=== PATIENT | male | born 1950 | race Caucasian/White ===

== ENCOUNTER 2017-11-26 06:39 | Inpatient (IN) | payer OTHER ==
[2017-11-26] VITALS (9 sets, daily range): BP systolic 135–164; BP diastolic 80–99; PULSE 62–77; TEMP 36.6–36.9; O2SAT 94–98; Ht 172.7 cm; Wt 92.1 kg
[~2017-11-26] VITALS: Ht 172.7 cm; Wt 92.1 kg
[2017-11-26] MEDS ORDERED: ASPIRIN 81 MG CHEW PO STA (06:57)
[2017-11-26] MEDS ORDERED: NITROGLYCERIN 0.4 MG SL PER TAB CHARGE SL STA (06:57)
--- NOTE | 2017-11-26 07:13 | EMERGENCY ROOM VISIT NOTE ---
History Report prepared by Bassam: Peyton Brown Under the Supervision of: Dr. Galindo Mcpherson M.D. First contact with patient: 06:48 Chief Complaint: CHEST PAIN Stated Complaint: CHEST PAIN,TIGHTNESS History of Present Illness The patient is a 67 year old male who presents to the Emergency Room with complaints of worsening left-sided chest pain beginning last night. The patient rates his pain at a 3/10. He describes the pain as a tightness and states that it has worsened over the last hour and a half. The patient reports feeling fine yesterday. The patient reports feeling nauseous but denies having abdominal pain, back pain, shortness of breath, and vomiting. He also reports feeling tense and anxious, but denies a history of anxiety. He denies having any burping and also denies any pain or swelling in his legs. He does report that his stools have been darker lately. He states that he gives blood every year and that his hematocrit has been fine. The patient states that 5 years ago he had 3 stents placed in [place]. He reports that he takes a baby aspirin daily and that he took one this morning. He denies being on any other blood thinners. The patient reports a history of cardiac problems and states that he has hyperlipidemia and hypertension, which he reports has been under control. The patient reports that he walks a couple of miles everyday. Source of History: patient Onset: last night Position: chest Symptom Intensity: rated at a 3/10 Quality: other (pain) Timing: worsening Associated Symptoms: + nausea, No SOB, No vomiting, No abdominal pain, No back pain Review of Systems See HPI for pertinent positives & negatives. A total of 10 systems reviewed and were otherwise negative. Past Medical & Surgical Medical Problems: (1) Chest pain (2) Elevated troponin (3) HTN (hypertension) (4) Hyperlipidemia Old medical records were reviewed. Nurse's notes were reviewed and I agree with. Family History Patient reports no known family medical history. Social History Smoking Status: Never Smoker Marital Status: Current/Historical Medications Scheduled Amlodipine (Norvasc), 10 MG PO DAILY Aspirin (Aspirin Ec), 81 MG PO DAILY Carvedilol (Coreg), 12.5 MG PO DAILY Tamsulosin Hcl (Flomax), 0.8 MG PO HS Allergies Coded Allergies: Iodinated Diagnostic Agents (Unverified Allergy, Unknown, ., 11/26/17) Physical Exam Vital Signs Date Time Temp Pulse Resp B/P (MAP) Pulse Ox O2 Delivery O2 Flow Rate FiO2 11/26/17 08:23 67 18 163/98 11/26/17 07:42 62 146/82 11/26/17 07:22 68 86/62 11/26/17 07:17 79 120/75 11/26/17 07:12 71 169/100 11/26/17 06:59 74 11/26/17 06:41 36.4 85 20 187/115 97 Room Air Physical Exam General: Non-ill appearing older male in no acute distress. HEENT: Normal cephalic atraumatic. Pupils are equal round and reactive to light. Extraocular movements are intact. Oropharynx is pink with moist mucous membranes. No swelling of the mouth lips or tongue. Neck: Supple with a midline trachea. No meningeal signs or stiffness, no JVD or bruits. No Stridor. Chest: Clear to auscultation bilaterally. No wheezes or rhonchi. No increased work of breathing. Heart: regular rate and rhythm. Abdomen: Soft nontender, nondistended without rebound guarding or rigidity. Extremities: No cyanosis clubbing or edema. No calf tenderness or assymetry Spine/Back. Non tender to palpation. No CVA tenderness Rectal: Normal tone. Brown stool. Guaiac negative. Skin: Good turgor without rashes. Neurologic exam: Cranial nerves two through 12 are intact. Motor and sensation are intact and symmetrical throughout. Medical Decision & Procedures ER Provider Diagnostic Interpretation: Radiology results as stated below per my review and radiologist interpretation: CHEST ONE VIEW PORTABLE CLINICAL HISTORY: Atypical chest pain COMPARISON STUDY: No previous studies for comparison. FINDINGS: The heart is at the upper limits of normal in size. There is no failure. There is no focal pulmonary consolidation. There are no pleural effusions.[ IMPRESSION: No active disease in the chest. Electronically signed by: Foreign Rodriguez M.D. 11/26/2017 7:16 AM Dictated Date/Time: 11/26/2017 7:16 AM Laboratory Results 11/26/17 07:10 Red Blood Count 5.53, Mean Corpuscular Volume 83.0, Mean Corpuscular Hemoglobin 28.8, Mean Corpuscular Hemoglobin Concent 34.6, Mean Platelet Volume 10.7, Neutrophils (%) (Auto) 59.7, Lymphocytes (%) (Auto) 30.6, Monocytes (%) (Auto) 7.5, Eosinophils (%) (Auto) 1.7, Basophils (%) (Auto) 0.4, Neutrophils # (Auto) 4.15, Lymphocytes # (Auto) 2.13, Monocytes # (Auto) 0.52, Eosinophils # (Auto) 0.12, Basophils # (Auto) 0.03 11/26/17 07:10 Test 11/26/17 07:10 11/26/17 07:19 White Blood Count 6.96 K/uL (4.8-10.8) Red Blood Count 5.53 M/uL (4.7-6.1) Hemoglobin 15.9 g/dL (14.0-18.0) Hematocrit 45.9 % (42-52) Mean Corpuscular Volume 83.0 fL (80-100) Mean Corpuscular Hemoglobin 28.8 pg (25-34) Mean Corpuscular Hemoglobin Concent 34.6 g/dl (32-36) Platelet Count 201 K/uL (130-400) Mean Platelet Volume 10.7 fL (7.4-10.4) Neutrophils (%) (Auto) 59.7 % Lymphocytes (%) (Auto) 30.6 % Monocytes (%) (Auto) 7.5 % Eosinophils (%) (Auto) 1.7 % Basophils (%) (Auto) 0.4 % Neutrophils # (Auto) 4.15 K/uL (1.4-6.5) Lymphocytes # (Auto) 2.13 K/uL (1.2-3.4) Monocytes # (Auto) 0.52 K/uL (0.11-0.59) Eosinophils # (Auto) 0.12 K/uL (0-0.5) Basophils # (Auto) 0.03 K/uL (0-0.2) RDW Standard Deviation 44.2 fL (36.4-46.3) RDW Coefficient of Variation 14.5 % (11.5-14.5) Immature Granulocyte % (Auto) 0.1 % Immature Granulocyte # (Auto) 0.01 K/uL (0.00-0.02) Prothrombin Time 10.3 SECONDS (9.0-12.0) Prothromb Time International Ratio 1.0 (0.9-1.1) Anion Gap 7.0 mmol/L (3-11) Est Creatinine Clear Calc Drug Dose 64.7 ml/min Estimated GFR () 70.9 Estimated GFR (Non- 61.1 BUN/Creatinine Ratio 17.2 (10-20) Calcium Level 9.2 mg/dl (8.5-10.1) Total Bilirubin 0.3 mg/dl (0.2-1) Direct Bilirubin 0.1 mg/dl (0-0.2) Aspartate Amino Transf (AST/SGOT) 24 U/L (15-37) Alanine Aminotransferase (ALT/SGPT) 27 U/L (12-78) Alkaline Phosphatase 94 U/L (45-117) Total Creatine Kinase 181 U/L (39-308) Creatine Kinase MB 7.9 ng/ml (0.5-3.6) Creatine Kinase MB Ratio 4.4 (0-3.0) Total Protein 7.5 gm/dl (6.4-8.2) Albumin 4.0 gm/dl (3.4-5.0) Lipase 123 U/L (73-393) Bedside Troponin I 0.290 ng/ml (0-0.045) Laboratory studies as stated above per my review. Medications Administered Medications (Trade) Dose Ordered Sig/Gloria Route Start Time Stop Time Status Last Admin Dose Admin Aspirin (Aspirin Chew) 243 mg NOW STAT PO 11/26/17 06:57 11/26/17 06:59 DC 11/26/17 07:27 243 MG Nitroglycerin (Nitrostat Tab) 0.4 mg NOW STAT SL 11/26/17 06:57 11/26/17 06:59 DC 11/26/17 07:12 0.4 MG Sodium Chloride 500 ml @ 999 mls/hr Q31M STAT IV 11/26/17 07:24 11/26/17 07:54 DC 11/26/17 07:29 999 MLS/HR Nitroglycerin (Nitroglycerin 2% Oint) 1 inch NOW ONCE EXT 11/26/17 08:00 11/26/17 08:01 DC 11/26/17 08:11 1 INCH Heparin Sodium/ Dextrose (Heparin 25,000 Unit/500ml D5W) 25,000 unit STK-MED ONCE .ROUTE 11/26/17 07:57 11/26/17 07:58 DC 11/26/17 08:14 25,000 UNIT Heparin Sodium (Porcine) (Heparin Sq 5000 Unit/0.5ml) 10,000 unit STK-MED ONCE .ROUTE 11/26/17 07:57 11/26/17 07:58 DC 11/26/17 08:13 6,000 UNIT Sodium Chloride 1,000 ml @ 200 mls/hr Q5H ONCE IV 11/26/17 08:01 11/26/17 09:35 DC 11/26/17 08:20 200 MLS/HR ECG Per My Interpretation Indication: chest pain Rate (beats per minute): 81 Rhythm: normal sinus Findings: ST depression (Anterior) Comparison ECG Date: no prior available Change: second ECG: normal sinus rhythm, 61, ST segment depression improved compared to the first ECG third ECG: normal sinus rhythm, 60, non-specific T-wave abnormality, no change from the second ECG ED Course 0649: Past medical records reviewed. The patient was evaluated in room A10, and a complete history and physical examination were performed. 0655: I spoke to case management to retrieve the patient's old records. 0657: Ordered Nitroglycerin 0.4 mg SL, Aspirin 243 mg PO. 0722: I checked on the patient. He had 2 nitroglycerin and he states that his chest pain is now between a 0/1 out of 10. His systolic blood pressure dropped to 86. He states that he feels nauseous. We will repeat his ECG now. 0724: Ordered Sodium Chloride 500 ml @ 999 mls/hr IV. 0729: I checked on the patient and he feels better and states that he is no longer having chest pain. I reviewed his second ECG. 0731: I checked on the patient. He says that he has a mild awareness of a slight twinge in his chest. His troponin is mildly elevated. 0735: Discussed the patient's case with Dr. Anderson-Cardiology. He said that he would admit the patient and keep an eye on him. 0737: I checked on the patient. I discussed heparin with him. He states that his pain comes in waves and currently rates it at a 3/10. I ordered a third ECG. 0740: Discussed the patient's case with Dr. Cedillo who agreed with a heparin drip. Dr. Cedillo will further evaluate the patient. 0757: Ordered Heparin Sodium (Porcine) 10,000 unit, Heparin Sodium/Dextrose 25, 000 unit. 0800: Ordered Nitroglycerin 1 inch EXT. 0819: I checked on the patient and he appears to be comfortable. 0831: I checked on the patient. He said that he is feeling well. Dr. Cedillo is with him now. 0857: I checked on the patient. He said that he feels about the same and he appears to be comfortable. 0945: I checked on the patient and he is doing well. He will be further evaluated for management and care. Medical Decision Differentials include, but are not limited to; acute coronary syndrome, dysrhythmia, electrolyte or metabolic abnormality, aortic dissection, and CHF. This patient comes in as described above. He was placed in room A-10. He is here for treatment and evaluation of left-sided chest pain. It feels like a pressure he has had it off and on all night. The pain is 3 out of 10 upon arrival and he was moderately hypertensive. He did take a baby aspirin at home and I gave him 3 additional baby aspirin here. He has never been here before and we are attempting to get old records from his hospital in [place]. His symptoms are very concerning for acute coronary syndrome. His initial EKG does show some ST depressions anteriorly. He was given nitroglycerin 2 and the pain resolved. His blood pressure did come down into the high 80s and responded to a 500 cc IV fluid bolus. The EKG also looked improved with ST segments coming up. His troponin was mildly elevated at 0.26. Chest x-ray does not suggest congestive heart failure or pneumothorax. I did discuss case with Dr. Anderson, the apprise counselor on-call, given his EKG findings. Although he does not meet criteria at this point for acute STEMI, I am concerned that this is an acute coronary syndrome. He recommended heparinization and pain control if things progress or get worse he may need a cath today. The patient seem to be doing well and started having a little pain again and was given intravenous nitroglycerin paste topically as well as some IV hydration. A third EKG shows no change compared EKG #2. He does not have anything clinically to suggest aortic dissection or aortic pathology. I did a rectal exam it was guaiac negative grossly brown stool. He was heparinized with a IV bolus and hourly rate IV. Dr. Cedillo from [facility] hospitalist group saw him in the ER for admission. Medication Reconcilliation Current Medication List: was personally reviewed by me Blood Pressure Screening Patient's blood pressure: Elevated blood pressure Blood pressure disposition: Elevated BP felt to be situational referred to hospitalist Consults Time Called: 07 Consulting Physician: Dr. Anderson- [facility] Cardiology Returned Call: 0735 Discussed the patient's case with Dr. Anderson-Cardiology. He said that he would admit the patient and keep an eye on him. Additional Consults: Time Called: 07 Consulted Physician: Dr. Cedillo- [facility] Hospitalist Returned Call: 0740 Additional Comments: Discussed the patient's case with Dr. Cedillo who agreed with a heparin drip. Dr. Cedillo will further evaluate the patient. Impression Primary Impression: Acute coronary syndrome Additional Impression: Left sided chest pain Critical Care I have personally spent greater than 45 minutes of critical care time in the direct management of this patient. This includes bedside care, interpretation of diagnostic studies, and testing, discussion with consultants, patient, and family members, and other required patient management activities. This 45 minutes is in excess of all separately billable procedures. Scribe Attestation The scribe's documentation has been prepared under my direction and personally reviewed by me in its entirety. I confirm that the note above accurately reflects all work, treatment, procedures, and medical decision making performed by me. Departure Information Dispostion Being Evaluated By Hospitalist Patient Instructions My [facility] Health Problem Qualifiers
--- NOTE | 2017-11-26 07:17 | DIAGNOSTIC IMAGING REPORT ---
CHEST ONE VIEW PORTABLE CLINICAL HISTORY: Atypical chest pain COMPARISON STUDY: No previous studies for comparison. FINDINGS: The heart is at the upper limits of normal in size. There is no failure. There is no focal pulmonary consolidation. There are no pleural effusions.[ IMPRESSION: No active disease in the chest. Electronically signed by: Foreign Rodriguez M.D. 11/26/2017 7:16 AM Dictated Date/Time: 11/26/2017 7:16 AM
[2017-11-26 07:24] LABS: BASO % 0.4 %; BASO ABS # 0.03 K/uL (0-0.2); EOS % 1.7 %; EOS ABS # 0.12 K/uL (0-0.5); HEMATOCRIT 45.9 % (42-52); HEMOGLOBIN 15.9 g/dL (14.0-18.0); IG# 0.01 K/uL (0.00-0.02); LYMPH % 30.6 %; LYMPH ABS # 2.13 K/uL (1.2-3.4); MEAN CORPUSCULAR HEMOGLOBIN 28.8 pg (25-34); MEAN CORPUSCULAR HGB CONC 34.6 g/dl (32-36); MEAN PLATELET VOLUME 10.7 fL (7.4-10.4); MONO % 7.5 %; MONO ABS # 0.52 K/uL (0.11-0.59); NEUT % 59.7 %; NEUT ABS # 4.15 K/uL (1.4-6.5); PLATELET COUNT 201 K/uL (130-400); RED CELL DISTRIBUTION WIDTH CV 14.5 % (11.5-14.5); RED CELL DISTRIBUTION WIDTH SD 44.2 fL (36.4-46.3); WHITE BLOOD COUNT 6.96 K/uL (4.8-10.8)
[2017-11-26] MEDS ORDERED: SODIUM CHLORIDE 0.9% 500ML 500 ML IV STA (07:24)
[2017-11-26 07:32] LABS: PTT PATIENT 25.9 SECONDS (21.0-31.0)
[2017-11-26] MEDS ORDERED: AMLO10TA3 PO (07:36)
[2017-11-26] MEDS ORDERED: ASPI81TA28 PO (07:36)
[2017-11-26] MEDS ORDERED: CARV12.5 PO (07:36)
[2017-11-26] MEDS ORDERED: TAMS0.4C38 PO (07:36)
[2017-11-26 07:46] LABS: CALCIUM 9.2 mg/dl (8.5-10.1); CKMB 7.9 ng/ml (0.5-3.6); CREATININE 1.21 mg/dl (0.60-1.40); POTASSIUM 3.9 mmol/L (3.5-5.1); TOTAL PROTEIN 7.5 gm/dl (6.4-8.2)
[2017-11-26] MEDS ORDERED: HEPARIN SOD 5000 UNIT/0.5 ML CARP ONE (07:57)
[2017-11-26] MEDS ORDERED: HEPARIN 25000 UNIT/500 ML D5W ONE (07:57)
[2017-11-26] MEDS ORDERED: NITROGLYCERIN 2% OINTMENT 30GM TUBE EXT ONE (08:00)
[2017-11-26] MEDS ORDERED: SODIUM CHLORIDE 0.9% 1000ML 1,000 ML IV ONE (08:01)
[2017-11-26] MEDS ORDERED: MoRPHine SULFATE 2 MG/ML CARP IV PRN (09:00)
[2017-11-26] MEDS: ASPIRIN 81 MG ECTAB PO SCH ×2 (09:00→10:47)
[2017-11-26] MEDS ORDERED: ONDANSETRON INJ 2 MG/ML 2 ML VIAL IV PRN (09:00)
[2017-11-26] MEDS: CARVEDILOL 12.5 MG TAB PO SCH ×3 (09:00→20:54)
[2017-11-26] MEDS: AMLODIPINE BESYLATE 5 MG TAB PO SCH ×2 (09:00→10:47)
--- NOTE | 2017-11-26 09:15 | History and Physical ---
History & Physical Date & Time of Service: Nov 26, 2017 at 09:05 Chief Complaint: Chest Pain,Tightness Primary Care Physician: No Doctor, Assigned History of Present Illness Source: patient This patient is a 67-year-old male with history of CAD with 3 stents placed in 2012, HTN, BPH, and statin intolerance, who presents to the ER with 2 hours of progressively worsening left-sided chest pain. The chest pain is described as a tightness and squeezing, is nonradiating, was associated with anxiety, nausea. It was a 5 out of 10 at worst. It was relieved with nitroglycerin sublingually in the ER, however continues to slightly wax and wane to a 0.5 out of 10 in severity with Nitropaste in place. His blood pressure did drop into the 80s systolic with nitroglycerin but responded to a bolus of normal saline. First troponin was elevated at 0.29. His ECG showed ST depressions in the anterior leads which resolved with nitroglycerin on subsequent ECGs. He will be admitted for rule out ACS. Past Medical/Surgical History Past medical Problems: CAD-3 stents placed in 2012 in the distal circ OM 3, distal CX, and distal RCA HTN (hypertension) Hyperlipidemia-statin intolerance BPH PSH: Prostate biopsy-negative for malignancy Appendectomy Cataracts Epigastric hernia repair Family History Patient reports no known family medical history. 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) Allergies Coded Allergies: Iodinated Diagnostic Agents (Unverified Allergy, Unknown, ., 11/26/17) Home Medications Scheduled Amlodipine (Norvasc), 10 MG PO DAILY Aspirin (Aspirin Ec), 81 MG PO DAILY Carvedilol (Coreg), 12.5 MG PO DAILY Tamsulosin Hcl (Flomax), 0.8 MG PO HS Review of Systems Constitutional: No fever, No chills Eyes: No problem reported ENT: No sore throat Respiratory: No cough, No sputum, No shortness of breath, No dyspnea on exertion Cardiovascular: + chest pain, + claudication, No edema Abdomen: + nausea, No vomiting, No diarrhea, No constipation, No GI bleeding Musculoskeletal: + calf pain (Gets calf pains with walking far distances), No joint pain Genitourinary - Male: No problem reported Neurologic: No problem reported Psychiatric: + anxiety (With chest pain ) Endocrine: No problem reported Hematologic / Lymphatic: No problem reported Integumentary: No problem reported Allergic / Immunologic: + problem reported (Had anaphylaxis with IV contrast dye for CAT scan) Physical Exam Vital Signs Date Time Temp Pulse Resp B/P (MAP) Pulse Ox O2 Delivery O2 Flow Rate FiO2 11/26/17 08:23 67 18 163/98 11/26/17 07:42 62 146/82 11/26/17 07:22 68 86/62 11/26/17 07:17 79 120/75 11/26/17 07:12 71 169/100 11/26/17 06:59 74 11/26/17 06:41 36.4 85 20 187/115 97 Room Air General Appearance: WD/WN, no apparent distress Head: normocephalic, atraumatic Eyes: normal inspection, PERRL, EOMI, sclerae normal ENT: normal ENT inspection, hearing grossly normal, TMs normal, pharynx normal Neck: supple, no adenopathy, thyroid normal, no JVD, no carotid bruits, trachea midline Respiratory/Chest: lungs clear, normal breath sounds, no respiratory distress, no accessory muscle use Cardiovascular: regular rate, rhythm, no edema, no gallop, no JVD, no murmur Abdomen/GI: normal bowel sounds, non tender, soft, no organomegaly, no pulsatile mass, occult blood negative (As per ER physician), + pertinent finding (Small midline surgical scar in the abdomen in the epigastric region) Back: normal inspection Extremities/Musculoskelatal: normal inspection, no calf tenderness, normal capillary refill, no pedal edema Neurologic/Psych: no motor/sensory deficits, alert, normal mood/affect, oriented x 3 Skin: normal color, warm/dry, no rash Lymphatic: no adenopathy Diagnostics Laboratory Results Results Past 24 Hours Test 11/26/17 06:57 11/26/17 07:10 11/26/17 07:19 Range/Units Creatine Kinase MB Ratio 4.4 0-3.0 White Blood Count 6.96 4.8-10.8 K/uL Red Blood Count 5.53 4.7-6.1 M/uL Hemoglobin 15.9 14.0-18.0 g/dL Hematocrit 45.9 42-52 % Mean Corpuscular Volume 83.0 80-100 fL Mean Corpuscular Hemoglobin 28.8 25-34 pg Mean Corpuscular Hemoglobin Concent 34.6 32-36 g/dl Platelet Count 201 130-400 K/uL Mean Platelet Volume 10.7 7.4-10.4 fL Neutrophils (%) (Auto) 59.7 % Lymphocytes (%) (Auto) 30.6 % Monocytes (%) (Auto) 7.5 % Eosinophils (%) (Auto) 1.7 % Basophils (%) (Auto) 0.4 % Neutrophils # (Auto) 4.15 1.4-6.5 K/uL Lymphocytes # (Auto) 2.13 1.2-3.4 K/uL Monocytes # (Auto) 0.52 0.11-0.59 K/uL Eosinophils # (Auto) 0.12 0-0.5 K/uL Basophils # (Auto) 0.03 0-0.2 K/uL RDW Standard Deviation 44.2 36.4-46.3 fL RDW Coefficient of Variation 14.5 11.5-14.5 % Immature Granulocyte % (Auto) 0.1 % Immature Granulocyte # (Auto) 0.01 0.00-0.02 K/uL Prothrombin Time 10.3 9.0-12.0 SECONDS Prothromb Time International Ratio 1.0 0.9-1.1 Activated Partial Thromboplast Time 25.9 21.0-31.0 SECONDS Partial Thromboplastin Ratio 1.0 Sodium Level 142 136-145 mmol/L Potassium Level 3.9 3.5-5.1 mmol/L Chloride Level 108 98-107 mmol/L Carbon Dioxide Level 26 21-32 mmol/L Anion Gap 7.0 3-11 mmol/L Blood Urea Nitrogen 21 7-18 mg/dl Creatinine 1.21 0.60-1.40 mg/dl Est Creatinine Clear Calc Drug Dose 64.7 ml/min Estimated GFR () 70.9 Estimated GFR (Non- 61.1 BUN/Creatinine Ratio 17.2 10-20 Random Glucose 113 70-99 mg/dl Calcium Level 9.2 8.5-10.1 mg/dl Total Bilirubin 0.3 0.2-1 mg/dl Direct Bilirubin 0.1 0-0.2 mg/dl Aspartate Amino Transf (AST/SGOT) 24 15-37 U/L Alanine Aminotransferase (ALT/SGPT) 27 12-78 U/L Alkaline Phosphatase 94 45-117 U/L Total Creatine Kinase 181 39-308 U/L Creatine Kinase MB 7.9 0.5-3.6 ng/ml Total Protein 7.5 6.4-8.2 gm/dl Albumin 4.0 3.4-5.0 gm/dl Lipase 123 73-393 U/L Bedside Troponin I 0.290 0-0.045 ng/ml CXR normal EKG ECG with ST depression in the anterior leads ECG repeat after nitroglycerin with resolution of anterior lead depression, sinus bradycardia No prior EKG available Impression Assessment and Plan This patient is a 67-year-old male with history of CAD with 3 stents placed in 2012, HTN, BPH, and statin intolerance, who presents to the ER with 2 hours of progressively worsening left-sided chest pain. The chest pain is described as a tightness and squeezing, is nonradiating, was associated with anxiety, nausea. It was a 5 out of 10 at worst. It was relieved with nitroglycerin sublingually in the ER, however continues to slightly wax and wane to a 0.5 out of 10 in severity with Nitropaste in place. His blood pressure did drop into the 80s systolic with nitroglycerin but responded to a bolus of normal saline. First troponin was elevated at 0.29. His ECG showed ST depressions in the anterior leads which resolved with nitroglycerin on subsequent ECGs. He will be admitted for rule out ACS. Chest pain/elevated troponin/CAD with history of 3 TESHA-with first troponin elevated 0.29, unstable angina, need to rule out ACS. -Admit to telemetry -Trend troponin -Check echocardiogram -Cardiology consultation ordered and discussed with on-call photographer's assistant on the phone -If needs cardiac catheterization, would need premedication with IV steroids and Benadryl due to history of anaphylaxis -Continue aspirin, carvedilol (increase to twice daily from what is noted on home med rec) -Start heparin drip -He claims he is intolerant to statin drugs-we will hold off at this time -Check lipid panel in the morning -Continue Nitropaste and watch blood pressure, morphine as needed for chest pain -Continue normal saline to keep blood pressure up -ECG daily HTN-blood pressure is low with nitroglycerin but now responding normal saline and actually elevated -Continue amlodipine with hold parameters -Continue carvedilol with hold parameters BPH-stable -Continue Flomax Prophylaxis-heparin drip Disposition-on observation overnight on telemetry Resuscitation Status VTE Prophylaxis Will order VTE Prophylaxis: Yes
[2017-11-26] MEDS ORDERED: SODIUM CHLORIDE 0.9% 1000ML 1,000 ML IV SCH ×2 (10:00→15:00)
[2017-11-26] MEDS ORDERED: NURSING VERBAL MED ORDER ONE ×2 (10:30→11:00)
[2017-11-26] MEDS ORDERED: IV FLUIDS COMPLETED PRN (10:45)
[2017-11-26] MEDS ORDERED: HEPARIN 25,000 UNIT/500ML D5W 500 ML IV SCH (11:15)
[2017-11-26] MEDS ORDERED: DiphenhydrAMINE INJ 50 MG in SYRINGE 0 ML IV STA (12:35)
[2017-11-26] MEDS ORDERED: MIDAZOLAM HCL 1 MG/ML 2ML VIAL ONE ×2 (12:42→14:16)
[2017-11-26] MEDS ORDERED: FENTANYL CITRATE INJ 50 MCG/1 ML 2 ML VIAL ONE (12:43)
[2017-11-26] MEDS ORDERED: HEPARIN SOD (PORCINE) 1000 UNIT/ML 10 ML VIAL ONE (12:43)
[2017-11-26] MEDS ORDERED: NITROGLYCERIN/D5W 100MCG/ML 20ML SYR ONE (12:43)
[2017-11-26] MEDS ORDERED: NiCARDipine HCL INJ 2.5 MG/ML 10 ML AMP ONE (12:43)
[2017-11-26] MEDS ORDERED: DiphenhydrAMINE HCL 50 MG/ML VIAL IV ONE (12:45)
[2017-11-26 12:51] LABS: PTT PATIENT 108.1 SECONDS (21.0-31.0)
--- NOTE | 2017-11-26 12:58 | Pre Sedation Assessment ---
Pre Sedation Assessment General Date of Sedation: Nov 26, 2017. Vital Signs Past 12 Hours Date Time Temp Pulse Resp B/P (MAP) Pulse Ox O2 Delivery O2 Flow Rate FiO2 11/26/17 11:00 Room Air 11/26/17 11:00 Room Air 11/26/17 10:23 36.9 62 18 142/81 (101) 98 Room Air 11/26/17 09:09 65 11/26/17 08:58 74 140/89 11/26/17 08:23 67 18 163/98 11/26/17 07:42 62 146/82 11/26/17 07:22 68 86/62 11/26/17 07:17 79 120/75 11/26/17 07:12 71 169/100 11/26/17 06:59 74 11/26/17 06:41 36.4 85 20 187/115 97 Room Air Review Cardiovascular: regular rate, rhythm, no edema Lungs: chest non-tender, lungs clear Pre-Sedation Airway Assessment Smoking Status: Never Smoker Hx of Sleep Apnea: No Hx of difficult intubation: No Short Thick Neck: No Thyro-mental Distance: > 3 Finger Breadths Oral Cavity: WNL Mallampati Classification: Class III ASA Classification: Class III Procedure Planning Contraindications for Sedation: None Current Medications Reviewed: Yes Notes The planned sedation has been discussed with the patient. Informed Consent was obtained. I have identified the patient, determined the appropriateness of sedation and have assessed the patient immediately prior to the procedure. All medicine(s) and interventions are by my order.
[2017-11-26] MEDS ORDERED: HYDROCORTISONE IV 100 MG in SYRINGE 0 ML IV ONE (13:00)
--- NOTE | 2017-11-26 13:00 | CARDIOLOGY CONSULTATION ---
DATE OF CONSULTATION: 11/26/2017 PERTINENT HISTORY: Mr. Bledsoe is a 67-year-old white male admitted earlier today with a chest pain syndrome. This consultation was ordered to assist in his management. Of note, the patient lives in [place] and has his medical care in that area. The patient was in his usual state of health until late yesterday when he began to note some intermittent nausea. The patient was visiting family at [place] for a picnic that was scheduled for today. The patient was unable to sleep last evening, and at approximately 3:00 a.m., developed a substernal chest pressure with associated nausea. His symptoms continued until approximately 5:00 a.m. when he awoke his son and asked for a ride to the hospital. On arrival here, the patient demonstrated ST depression in the anterolateral leads while having his discomfort. He was given aspirin and sublingual nitroglycerin and his discomfort resolved. Follow up EKG noted almost complete resolution of the previously noted ST changes. The patient walks 2 miles every day for exercise. He has not experienced any exertional angina or limiting dyspnea. He further denies syncope, presyncope, PND, orthopnea, palpitations, lower extremity edema, and claudication. The patient's cardiac history began back in the year 2012 when he suffered an inferior myocardial infarction. Cardiac catheterization revealed disease in the right coronary artery and left circumflex. He had 3 drug-eluting stents placed at that time. This included a 3 x 18 Xience stent in the distal right coronary, a 2.75 x 12 Xience stent placed in the distal left circumflex, and a 2.25 x 15 Xience stent placed in the third obtuse marginal branch. Currently, the patient is resting comfortably in bed. He does note a vague sensation in his left axilla. He explains that "I would not want to walk the dog today." PAST MEDICAL HISTORY: 1. Coronary artery disease - see above. 2. History of inferior CT - 2012. 3. Drug-eluting stents x3 - see above. 4. Hypertension. 5. Statin intolerant hypercholesterolemia. 6. BPH. 7. Appendectomy. 8. Intraocular lens implant. 9. Abdominal hernia repair. ALLERGIES: CONTRAST DYE. MEDICATIONS: 1. Heparin drip. 2. Carvedilol 12.5 mg b.i.d. 3. Norvasc 10 mg per day. 4. Aspirin 81 mg per day. 5. Nitroglycerin one-half inch topically q. 6 hours. SOCIAL HISTORY: The patient is and lives with his . 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 Does not use tobacco. Alcohol use is occasional. FAMILY HISTORY: Mother at age 64 from COPD. Father at age 69 from an apparent CT. REVIEW OF SYSTEMS: A 10-point review of systems was completed and negative except for that described above. PHYSICAL EXAMINATION: GENERAL: This is a well-developed, well-nourished white male, in no acute distress. VITAL SIGNS: Blood pressure is 140/80 with a regular pulse of 62. Respiratory is 18. The patient is afebrile at 36.9 degrees Celsius. Saturations 98% on room air. HEENT: Negative. NECK: Supple with full carotid upstrokes. There are no carotid bruits. Jugular venous pressure is flat at 90 degrees. There is no thyromegaly. CARDIOVASCULAR: Reveals a regular rhythm with normal S1, S2. Heart sounds are distant. No obvious murmurs. LUNGS: Clear without rales, rhonchi, or wheezes. ABDOMEN: Soft, nontender without bruits. EXTREMITIES: Reveal intact radial artery pulses bilaterally. There is no peripheral edema. LABORATORY DATA: CBC notes hemoglobin 15.9, hematocrit 25.9, white count 6.9, platelet count 201,000. Electrolytes: Sodium 142, potassium 3.9, chloride 108, bicarb 26, BUN 21, creatinine 1.2, glucose 113. Point of care troponin on presentation was elevated at 0.29. CK was 181 with an MB fraction of 7.9. Chest x-ray shows no acute disease. Initial EKG noted sinus rhythm and anterolateral ST depression. Second tracing done after nitroglycerin noted almost complete normalization of the ST changes. IMPRESSION: Mr. Bledsoe presented with a presumed acute coronary syndrome. His symptoms have resolved and he is hemodynamically stable. We will plan to discuss the case further with Dr. Anderson who is construction equipment mechanic for interventional cardiology. He will likely need a cardiac catheterization before discharge. PLAN: 1. Consider conversion to metoprolol tartrate from carvedilol. 2. Agree with intravenous heparin. 3. Agree with trending cardiac enzymes. 4. Review echocardiogram. 5. Further recommendations pending his clinical course.
--- NOTE | 2017-11-26 13:00 | Post Sedation Assessment ---
Post Sedation Assessment General Date of Sedation Nov 26, 2017. Vital Signs: Vital Signs Past 12 Hours Date Time Temp Pulse Resp B/P (MAP) Pulse Ox O2 Delivery O2 Flow Rate FiO2 11/26/17 11:00 Room Air 11/26/17 11:00 Room Air 11/26/17 10:23 36.9 62 18 142/81 (101) 98 Room Air 11/26/17 09:09 65 11/26/17 08:58 74 140/89 11/26/17 08:23 67 18 163/98 11/26/17 07:42 62 146/82 11/26/17 07:22 68 86/62 11/26/17 07:17 79 120/75 11/26/17 07:12 71 169/100 11/26/17 06:59 74 11/26/17 06:41 36.4 85 20 187/115 97 Room Air Post Procedure Recovery Score Activity: (2) Moves 4 extremities * Respiration: (2) Deep breath/cough Circulation: (2) +/-20% PreAnes Value Consciousness: (2) Fully Awake Oxygen Saturation: (1) O2 needed for >90% Discharge Sedation Level of Care: Fast Track Phase II Post Sedation Plan On clinical assessment, the patient appears to have tolerated the sedation without complications. Patient is recovering as anticipated. Patient will continue to be monitored by nursing and may be discharged when sedation discharge criteria are met per below protocol. Upon Completions of procedure and additional 15 minutes continue every 5 minute vital signs and the P.A.R. score; then discharge to a Phase I or Fast Track to Phase II per the following guidelines: * Discharge Patient to appropriate Phase II area if PAR is 8 or greater or return to pre- procedure baseline. The post - procedure orders will be as directed. * If PAR score is less than 8 or not return to pre-procedure baseline then patient will follow Phase I monitoring till PAR is reached for Phase II. The Phase I may be done in procedure room or may call to secure a Phase I area. * If naloxone or flumazenil are used for reversal, hold in Phase I for an additional 60 -120 minutes before discharge to Phase II. Please call the Sedation Physician to re-evaluate and complete post-note for discharge to Phase II area. Do NOT discharge from procedure sedation or Phase 1 until post- sedation evaluation note is complete by procedure /sedation MD Sedation Discharge Instructions to be given to the patient at discharge to home.
[2017-11-26] MEDS ORDERED: NITROGLYCERIN 2% OINTMENT 30GM TUBE EXT SCH (14:00)
[2017-11-26] MEDS ORDERED: TICAGRELOR 90 MG TAB PO ONE (14:26)
--- NOTE | 2017-11-26 14:49 | Cardiac Catheterization ---
Procedure Note Procedure Date Nov 26, 2017. Pre-Procedure Diagnosis Non STEMI AUC Score 8 Post-Procedure Diagnosis Severe CAD, Successful PCI, Normal Intracardiac Pressures Procedure(s) Performed Coronary Angiography, Left Heart Cath, Drug Eluting Stent Training And Development Head Justin Door Builder(s) Bill Estimated Blood Loss 15 Medication(s) Fentanyl, Heparin, Nicardipine, Nitroglycerin, Versed, Lidocaine 1% Ticagrelor Summary of Findings Indication: High risk NSTEMI Access: 6Fr right radial artery Catheters: Cortez, JL3.5; EBU 3.5 guide Findings: LM - Angiographically normal LAD - Gives off moderate caliber high diagonal; after take-off small vessel with 40% mid stenosis at take-off of 1st septal; 50-60% distal stenosis at take- off of 2nd diagonal - High 1st diagonal with diffuse 90% proximal stenosis Circumflex - Large vessel, co-dominant, minimal disease in proximal, mid segments, widely patent distal segment stent; - OM2 subtotally occluded proximally with FRANCISCO JAVIER 0-1 flow in distal bifurcating vessel - Widely patent stent in L-PLB RCA - Co-dominant, large caliber, widely patent stent in the distal segment prior take-off of R-PDA. R-PDA with diffuse 30-40% proximal disease. LVEDP - 6 -- PCI -- Antithrombotic therapy: Heparin, Ticagrelor Procedure: LM cannulated with EBU 3.5 guide BMW placed into distal circumflex. Cognos Analyst 50 wire passed across ostial/proximal OM2 lesion into distal vessel OM2 lesion predilated with 2.0 compliant balloon Dilated lesion stented with 2.75 x 15 Clyde TESHA placed at ostium of OM2 Stent post-dilated with 2.75 noncompliant balloon IC vasodilators administered for spasm Post procedure FRANCISCO JAVIER 3 flow, stent well expanded with minimal residual stenosis and no apparent cardiac complications. BMW wire placed into distal high diagonal Whisper wire placed into distal LAD Diagonal dilated with 2.0 balloon. Dilated diagonal lesion stented with 2.5 x 30 Clyde TESHA; post-dilated with stent balloon. IC vasodilators administered for spasm Post procedure FRANCISCO JAVIER 3 flow, stent well expanded with minimal residual stenosis and no apparent cardiac complications. Arterial Closure: TR Band Summary: 1. Severe multivessel coronary artery disease - Acute subtotal occlusion of ostial/proximal OM2 - 90% diffuse proximal high 1st diagonal - Widely patent distal circumflex, L-PLB and distal RCA stents. 2. Normal intracardiac filling pressure 3. Successful PCI of ostial/proximal OM2 with single drug-eluting stent (2.75 x 15 Register). 4. Successful PCI of proximal high 1st diagonal with single drug-eluting stent ( 2.5 x 30 Clyde). 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 Continue dual-antiplatelet therapy for at least 1 year Continue statin, and ASCVD risk factor modification Consult cardiac Rehab Hemodynamics Rest Ao: 117/53/90 Final Ao: 104/57/77 LV: 124/6 Recommendations PCI without planned CABG Specimens None Radiation Exposure (mGy) 5864 Contrast (mls) 190 Fluids (cc crystalloids) 129 Drains none Anesthesia moderate Procedural Complication(s) None Disposition PCU ACC Data Cardiac Status Clinical evaluation leading to the procedure CAD Presntation: Non STEMI Anginal Classification: CCS IV Heart Failure: No, NYHA Class: CCS I Cardiogenic Shock w/in 24Hrs: No Cardiac Arrest w/in 24Hrs: No Imaging studies past 6 months: Yes Stress studies past 6 months: No Closure Device Percutaneous Entry Location: Radial Closure Device: Radial Band Recommendations: PCI without planned CABG PCI Indication: PCI for high risk Non-STEMI Lesion Segment Name: OM2 Culprit Artery: Yes Stenosis Prior to Rx (%): 99 Chronic Total Occlusion: No IVUS: No FFR: No Pre-Procedure FRANCISCO JAVIER Flow: 1 Previously Treated Lesion: No Lesion Complexity: Non-High/Non-C Lesion Length (mm): 12 Thrombus Present: Yes Bifurcation Lesion: Yes Guidewire Across Lesion: Yes Guidewire: Stenosis Post-Procedure (%): 0 Post-Procedure FRANCISCO JAVIER Flow: 3 Device(s) Deployed: Yes Lesion #2 Segment Name: 1st diagonal Culprit Artery: Yes Stenosis Prior to Rx (%): 90 Chronic Total Occlusion: No IVUS: No FFR: No Pre-Procedure FRANCISCO JAVIER Flow: 3 Previously Treated Lesion: No Lesion Complexity: Non-High/Non-C Lesion Length (mm): 25 Thrombus Present: No Bifurcation Lesion: No Guidewire Across Lesion: Yes Intraprocedure Events Significant Dissection: No Perforation: No
[2017-11-26 19:24] LABS: PTT PATIENT 43.4 SECONDS (21.0-31.0)
[2017-11-26] MEDS: TAMSULOSIN HCL 0.4 MG CAP PO SCH (20:54)
[2017-11-26] MEDS: TICAGRELOR 90 MG TAB PO SCH (20:54)
[2017-11-27 03:12] VITALS: BP 126/75; PULSE 69; TEMP 37.1; O2SAT 96
[2017-11-27 07:09] VITALS: BP 129/83; PULSE 67; TEMP 36.6; O2SAT 97
[2017-11-27 07:18] LABS: PTT PATIENT 25.4 SECONDS (21.0-31.0)
[2017-11-27 07:21] LABS: BASO % 0.3 %; BASO ABS # 0.03 K/uL (0-0.2); EOS % 0.8 %; EOS ABS # 0.08 K/uL (0-0.5); HEMATOCRIT 41.2 % (42-52); HEMOGLOBIN 13.7 g/dL (14.0-18.0); IG# 0.02 K/uL (0.00-0.02); LYMPH % 17.9 %; LYMPH ABS # 1.87 K/uL (1.2-3.4); MEAN CELL VOLUME 82.7 fL (80-100); MEAN CORPUSCULAR HEMOGLOBIN 27.5 pg (25-34); MEAN CORPUSCULAR HGB CONC 33.3 g/dl (32-36); MEAN PLATELET VOLUME 10.4 fL (7.4-10.4); MONO % 10.7 %; MONO ABS # 1.12 K/uL (0.11-0.59); NEUT % 70.1 %; PLATELET COUNT 175 K/uL (130-400); RED CELL DISTRIBUTION WIDTH CV 14.8 % (11.5-14.5); RED CELL DISTRIBUTION WIDTH SD 44.9 fL (36.4-46.3); WHITE BLOOD COUNT 10.42 K/uL (4.8-10.8)
[2017-11-27 07:55] LABS: CALCIUM 8.4 mg/dl (8.5-10.1); CREATININE 1.19 mg/dl (0.60-1.40); POTASSIUM 3.3 mmol/L (3.5-5.1)
[2017-11-27] MEDS ORDERED: POTASSIUM CHLORIDE 10 MEQ TABCR PO STA (08:32)
[2017-11-27] MEDS: TICAGRELOR 90 MG TAB PO SCH ×2 (08:47→20:26)
[2017-11-27] MEDS: CARVEDILOL 12.5 MG TAB PO SCH ×2 (09:00→20:25)
[2017-11-27] MEDS: AMLODIPINE BESYLATE 5 MG TAB PO SCH (09:00)
[2017-11-27] MEDS: ASPIRIN 81 MG ECTAB PO SCH (10:05)
[2017-11-27 12:24] VITALS: BP 115/74; PULSE 68; TEMP 36.4; O2SAT 98
--- NOTE | 2017-11-27 14:40 | CARDIOLOGY PROGRESS NOTE ---
DATE: 11/27/2017 SUBJECTIVE: Mr. Bledsoe is resting comfortably in bed without complaints of chest pain or dyspnea. Has been ambulatory within the room. Anxious for hospital discharge. OBJECTIVE: VITAL SIGNS: Blood pressure is 130/80, with a regular pulse of 60, respiratory rate is 18, the patient is afebrile at 36.6 degrees Celsius, saturation is 97% on room air. NECK: Supple, with full carotid upstrokes. No carotid bruits. Jugular venous pressure is flat at 90 degrees. There is no thyromegaly. CARDIOVASCULAR: Exam reveals a regular rhythm, with normal S1 and S2. Heart sounds are distant. No obvious murmurs. RESPIRATORY: Lungs are clear without rales, rhonchi, or wheezes. GASTROINTESTINAL: Abdomen is soft, nontender, without bruits. VASCULAR: Extremities reveal intact radial artery pulses bilaterally. There is no peripheral edema. LABORATORY DATA: CBC notes a hemoglobin of 13.7, hematocrit 41.2, white count 10.4, platelet count 175,000. Electrolytes note a sodium of 142, potassium 3.3, chloride 107, bicarbonate 27, BUN 16, creatinine 1.19, glucose 101. Troponin I level peaked at 66.4, currently 42.5. LDL cholesterol is 104, with an HDL of 39. EKG notes sinus rhythm and a minor nonspecific ST abnormality. mosaic floor layer is benign. IMPRESSION AND PLAN: 1. Status post non-ST elevation myocardial infarction. Culprit vessel was the first obtuse marginal branch in which Dr. Anderson placed a 2.75 x 15 mm drug-eluting stent. Unfortunately, echocardiogram done prior to the procedure noted normal systolic function. There is a small proximal inferior wall motion abnormality and some hypokinesis of the posterior wall. Will continue medical management with beta malia, aspirin, and ticagrelor. He has agreed to start low dose Crestor. 2. Coronary artery disease. Patient also had a 2.5 x 30 mm drug-eluting stent placed in the large first diagonal branch. Stents placed back in 2012 were all widely patent in the distal right coronary artery, distal left circumflex, and the third obtuse marginal branch. 3. Hypertension, controlled. 4. Hypercholesterolemia, as above, agrees to low dose Crestor. 5. Disposition: Would keep on telemetry overnight to rule out any malignant ventricular dysrhythmias. Will likely discharge to home tomorrow. [facility]
[2017-11-27 15:17] VITALS: BP 124/82; PULSE 67; TEMP 36.8; O2SAT 96
--- NOTE | 2017-11-27 16:42 | Hospitalist Progress Note ---
Hospitalist Progress Note Date of Service Nov 27, 2017. Subjective Pt evaluation today including: conversation w/ patient, conversation w/ investment consultant (Cardiology) Patient denies any chest pain, no shortness of breath. Telemetry with normal sinus rhythm and rates in the 60s-70s. No pain at the cath site in the right wrist. All Other Systems: Reviewed and Negative Objective Vital Signs Date Time Temp Pulse Resp B/P (MAP) Pulse Ox O2 Delivery O2 Flow Rate FiO2 11/27/17 15:17 36.8 67 22 124/82 (96) 96 Room Air 11/27/17 12:24 36.4 68 18 115/74 (88) 98 Room Air 11/27/17 08:00 Room Air 11/27/17 07:09 36.6 67 19 129/83 (98) 97 Room Air 11/27/17 03:12 37.1 69 18 126/75 (92) 96 Room Air 11/26/17 23:49 36.9 64 18 135/80 (98) 98 Room Air 11/26/17 20:00 Room Air 11/26/17 19:57 36.6 70 18 142/86 (104) 96 Room Air 11/26/17 18:00 77 18 164/99 (120) 94 Room Air 11/26/17 17:10 69 16 145/88 (107) 95 Room Air Physical Exam General Appearance: WD/WN, no apparent distress Eyes: normal inspection, sclerae normal ENT: hearing grossly normal Neck: trachea midline Respiratory/Chest: lungs clear, normal breath sounds, no respiratory distress, no accessory muscle use Cardiovascular: regular rate, rhythm, no edema, no murmur Abdomen: normal bowel sounds, non tender, soft Extremities: normal inspection, no pedal edema, no calf tenderness, + pertinent finding (Right wrist with dressing in place, no hematoma) Neurologic/Psychiatric: alert, normal mood/affect, oriented x 3 Skin: normal color, warm/dry, no rash Laboratory Results Last 24 Hours Test 11/26/17 19:03 11/27/17 01:10 11/27/17 06:59 Activated Partial Thromboplast Time 43.4 SECONDS 25.4 SECONDS Partial Thromboplastin Ratio 1.7 1.0 Troponin I 66.400 ng/ml 56.500 ng/ml 42.500 ng/ml White Blood Count 10.42 K/uL Red Blood Count 4.98 M/uL Hemoglobin 13.7 g/dL Hematocrit 41.2 % Mean Corpuscular Volume 82.7 fL Mean Corpuscular Hemoglobin 27.5 pg Mean Corpuscular Hemoglobin Concent 33.3 g/dl Platelet Count 175 K/uL Mean Platelet Volume 10.4 fL Neutrophils (%) (Auto) 70.1 % Lymphocytes (%) (Auto) 17.9 % Monocytes (%) (Auto) 10.7 % Eosinophils (%) (Auto) 0.8 % Basophils (%) (Auto) 0.3 % Neutrophils # (Auto) 7.30 K/uL Lymphocytes # (Auto) 1.87 K/uL Monocytes # (Auto) 1.12 K/uL Eosinophils # (Auto) 0.08 K/uL Basophils # (Auto) 0.03 K/uL RDW Standard Deviation 44.9 fL RDW Coefficient of Variation 14.8 % Immature Granulocyte % (Auto) 0.2 % Immature Granulocyte # (Auto) 0.02 K/uL Sodium Level 142 mmol/L Potassium Level 3.3 mmol/L Chloride Level 107 mmol/L Carbon Dioxide Level 27 mmol/L Anion Gap 8.0 mmol/L Blood Urea Nitrogen 16 mg/dl Creatinine 1.19 mg/dl Est Creatinine Clear Calc Drug Dose 65.6 ml/min Estimated GFR () 72.3 Estimated GFR (Non- 62.4 BUN/Creatinine Ratio 13.6 Random Glucose 101 mg/dl Calcium Level 8.4 mg/dl Magnesium Level 2.1 mg/dl Triglycerides Level 176 mg/dl Cholesterol Level 178 mg/dl HDL Cholesterol 39 mg/dl LDL Cholesterol, Calculated 104 mg/dl VLDL Cholesterol, Calculated 35 mg/dl Cholesterol/HDL Ratio 4.6 Assessment and Plan This patient is a 67-year-old male with history of CAD with 3 stents placed in 2012, HTN, BPH, and statin intolerance, who presents to the ER with 2 hours of progressively worsening left-sided chest pain. The chest pain is described as a tightness and squeezing, is nonradiating, was associated with anxiety, nausea. It was a 5 out of 10 at worst. It was relieved with nitroglycerin sublingually in the ER, however continues to slightly wax and wane to a 0.5 out of 10 in severity with Nitropaste in place. His blood pressure did drop into the 80s systolic with nitroglycerin but responded to a bolus of normal saline. First troponin was elevated at 0.29. His ECG showed ST depressions in the anterior leads which resolved with nitroglycerin on subsequent ECGs. Chest pain/unstable angina/NSTEMI/CAD with history of 3 TESHA-with first troponin elevated 0.29 and then increase to 2.7-went for urgent cardiac catheterization and had to TESHA placed-culprit vessel was second OM, also with stent placed in the diagonal Troponin peaked 66 and is now trending back down to 42 Echocardiogram with normal EF LDL 104, total cholesterol 170, HDL 39 -Continue further telemetry observation for malignant ventricular arrhythmia -Cardiology consultation and management appreciated -Continue aspirin, carvedilol (increase to twice daily from what is noted on home med rec) -Begin Brilinta 90 mg p.o. twice daily -Patient is willing to start a low-dose statin at this time given history of previous intolerance to statins-start Crestor 5 mg nightly -will need cardiac rehab after discharge -Will need outpatient cardiology follow-up after discharge HTN-blood pressure is acceptable -Continue amlodipine -Continue carvedilol Hypokalemia-potassium 3.3 today -Replace with 40 meq KCl p.o. 1 BPH-stable -Continue Flomax Prophylaxis-previous on heparin drip which is since been discontinued, on Brilinta and aspirin Disposition-changed to inpatient status, keep at least overnight for continued monitoring
[2017-11-27 19:43] VITALS: BP 136/88; PULSE 71; TEMP 36.6; O2SAT 97
[2017-11-27] MEDS: TAMSULOSIN HCL 0.4 MG CAP PO SCH (20:25)
[2017-11-27] MEDS ORDERED: ROSUVASTATIN CALCIUM 5 MG TAB PO SCH (21:00)
[2017-11-27 23:57] VITALS: BP 124/72; PULSE 67; TEMP 36.7; O2SAT 98
[2017-11-28 03:17] VITALS: BP 124/78; PULSE 63; TEMP 36.8; O2SAT 97
[2017-11-28 05:52] LABS: BASO % 0.4 %; BASO ABS # 0.03 K/uL (0-0.2); EOS % 1.2 %; EOS ABS # 0.09 K/uL (0-0.5); HEMATOCRIT 39.9 % (42-52); HEMOGLOBIN 13.1 g/dL (14.0-18.0); IG# 0.01 K/uL (0.00-0.02); LYMPH % 28.5 %; LYMPH ABS # 2.06 K/uL (1.2-3.4); MEAN CORPUSCULAR HEMOGLOBIN 27.6 pg (25-34); MEAN CORPUSCULAR HGB CONC 32.8 g/dl (32-36); MEAN PLATELET VOLUME 10.9 fL (7.4-10.4); MONO % 10.2 %; MONO ABS # 0.74 K/uL (0.11-0.59); NEUT % 59.6 %; NEUT ABS # 4.31 K/uL (1.4-6.5); PLATELET COUNT 157 K/uL (130-400); RED CELL DISTRIBUTION WIDTH CV 15.1 % (11.5-14.5); RED CELL DISTRIBUTION WIDTH SD 46.3 fL (36.4-46.3); WHITE BLOOD COUNT 7.24 K/uL (4.8-10.8)
[2017-11-28 06:25] LABS: CREATININE 1.09 mg/dl (0.60-1.40); POTASSIUM 3.7 mmol/L (3.5-5.1)
[2017-11-28 06:55] VITALS: BP 114/74; PULSE 60; TEMP 36.7; O2SAT 98
[2017-11-28] MEDS: TICAGRELOR 90 MG TAB PO SCH (07:59)
[2017-11-28] MEDS: ASPIRIN 81 MG ECTAB PO SCH (07:59)
[2017-11-28] MEDS: AMLODIPINE BESYLATE 5 MG TAB PO SCH (07:59)
[2017-11-28] MEDS: CARVEDILOL 12.5 MG TAB PO SCH (08:00)
--- NOTE | 2017-11-28 10:20 | CARDIOLOGY PROGRESS NOTE ---
DATE: 11/28/2017 CARDIOLOGY PROGRESS NOTE SUBJECTIVE: Mr. Bledsoe is resting comfortably at the bedside without complaints of chest pain or dyspnea. Anxious for hospital discharge. Has been ambulatory without difficulty. OBJECTIVE: VITAL SIGNS: Blood pressure is 114/74 with a regular pulse of 60, respiration is 18. Patient is afebrile at 36.7 degrees Celsius, saturation is 98% on room air. NECK: Supple with full carotid upstrokes. No carotid bruits. Jugular venous pressure is flat at 90 degrees. There is no thyromegaly. CARDIOVASCULAR: Reveals a regular rhythm with normal S1, S2. Heart sounds are distant. No obvious murmurs. LUNGS: Clear without rales, rhonchi, or wheezes. ABDOMEN: Soft, nontender without bruits. EXTREMITIES: Reveal intact radial artery pulses bilaterally. There is no peripheral edema. DATA: CBC notes hemoglobin 13.1, hematocrit 39.9, white count 7.24, platelet count 157,000. Electrolytes note a sodium of 139, potassium 3.7, chloride 108, bicarb 27, BUN 18, creatinine 1.09, glucose 92. child monitor is benign. IMPRESSION AND PLAN: 1. Non-ST elevation myocardial infarction, drug-eluting stent placed in the first obtuse marginal branch, as this was the culprit vessel. Also had placement of drug-eluting stent in enlarged first diagonal branch at the same time. Echocardiogram notes normal systolic function with an inferoposterior wall motion abnormality. Continue beta malia, aspirin, and ticagrelor. He is tolerating low-dose rosuvastatin. 2. Known coronary artery disease -- status post drug-eluting stents in the distal right coronary artery, distal right circumflex, third obtuse marginal branch back in 2012. 3. Hypertension -- controlled. Could consider discontinuation of calcium channel malia. 4. Hypercholesterolemia -- tolerating low dose rosuvastatin. 5. Disposition -- stable for hospital discharge.
[2017-11-28] MEDS ORDERED: CRS5 PO (10:43)
[2017-11-28] MEDS ORDERED: CARV12.5 PO (10:43)
[2017-11-28] MEDS ORDERED: BRL90 PO (10:43)
--- NOTE | 2017-11-28 10:44 | Discharge Instructions ---
Discharge Instructions Date of Service Nov 28, 2017. Admission Reason for Admission: Chest Pain,Elevated Troponin Discharge Discharge Diagnosis / Problem: NSTEMI Discharge Goals Goal(s): Improve disease control, Diagnostic testing, Therapeutic intervention Activity Recommendations Activity Limitations: as noted below Exercise/Sports Limitations: gradually increase as tolerated (As directed by your chemical detection expert-you will need a referral to cardiac rehab) Shower/Bathe: no limitations . Instructions / Follow-Up Instructions / Follow-Up Home Care: * Take your medications exactly as directed. Don't skip doses. * Remember that recovery after a heart attack takes time. Plan to rest for at lease 4-8 weeks while you recover. Then return to normal activity when your doctor says it's okay. * Ask your doctor about joining a heart rehabilitation program. * Tell your doctor if you are feeling depressed. Feelings of sadness are common after a heart attack, but it is important that you speak to someone if you are feeling overwhelmed by these feelings. * If you are having chest pain, call 911 for an ambulance. Do NOT drive yourself to the hospital. * Ask your family members to learn CPR. * Learn to take your own blood pressure and pulse. Keep a record of your results. Ask your doctor when you should seek emergency medical attention. He or she will tell you which blood pressure reading is dangerous. Lifestyle Changes: * Maintain a healthy weight. Get help to lose any extra pounds. * Cut back on salt. * Limit canned, dried, packaged, and fast foods. * Don't add salt to your food. * Season foods with herbs instead of salt when you cook. * Break the smoking habit. Enroll in a stop-smoking program to improve your chances of success. * Limit fatty foods. * Ask your doctor about having your lipid levels checked regularly. * Build up your activity according to your doctor's recommendation. * Ask your doctor when it's okay to resume sexual activity. * Tell your doctor about any erectile dysfunction (ED) medication you are taking. Some ED medications are not safe if you take certain heart medications. * Try to manage stress. Follow Up: It is important for you to keep your follow up appointments with your medical provider. Current Hospital Diet Patient's current hospital diet: AHA Diet (Heart Healthy) Discharge Diet Recommended Diet: AHA Diet (Heart Healthy) Procedures Procedures Performed: Cardiac catheterization Echocardiogram Chest x-ray Pending Studies Studies pending at discharge: no Laboratory Results Lipid Panel Test 11/27/17 06:59 Range/Units Triglycerides Level 176 H 0-150 mg/dl Cholesterol Level 178 0-200 mg/dl HDL Cholesterol 39 mg/dl Cholesterol/HDL Ratio 4.6 LDL Cholesterol, Calculated 104 mg/dl Medical Emergencies . Who to Call and When: Medical Emergencies: If at any time you feel your situation is an emergency, please call 911 immediately. Call 911 immediately or go to your nearest Emergency Room if you experience any of the following: Warning Signs and Symptoms of a Heart Attack * Chest pain that is not relieved by medication * Shortness of breath . Non-Emergent Contact Non-Emergency issues call your: Primary Care Provider, [employer] Call Non-Emergent contact if: temperature is above 101, your pain is not controlled, your pain is worsening, your pain is unusual for you, your pain is concerning you, you have any medication questions . . "Provider Documentation" section prepared by Rosemary Cedillo. . AMI Core Measures Reason no ASA as I/P: Treatment provided - N/A Reason no ASA at D/C: Treatment provided - N/A Reason no statin as I/P: Treatment provided - N/A Reason no statin at D/C: Treatment provided - N/A
--- NOTE | 2017-11-28 10:45 | Discharge Summary ---
Discharge Summary Date of Service Nov 28, 2017. Discharge Summary Admission Date: Nov 27, 2017 at 16:37 Discharge Date: Nov 28, 2017 Discharge Disposition: Home Principal Diagnosis: NSTEMI Problems/Secondary Diagnoses: CAD with 3 stents placed in 2012 and 2 more in 10/2017 HTN BPH Hypokalemia Procedures: Cardiac catheterization CXR ECHO Consultations: Cardiology Medication Reconciliation New Medications: Rosuvastatin Calcium (Crestor) 5 Mg Tab 5 MG PO HS for 30 Days, #30 TAB Ticagrelor (Brilinta) 90 Mg Tab 90 MG PO BID for 30 Days, #60 TAB Changed Medications: Carvedilol (Coreg) 12.5 Mg Tab 12.5 MG PO BID for 30 Days, #60 TAB (Changed from: DAILY) Continued Medications: Amlodipine (Norvasc) 10 Mg Tab 10 MG PO DAILY Aspirin (Aspirin Ec) 81 Mg Tab 81 MG PO DAILY Tamsulosin Hcl (Flomax) 0.4 Mg Cap 0.8 MG PO HS Discharge Exam Feeling "great." No further CP. No SOB. Is ambulating. No abd pain, is abi po. Tele with NSR Physical Exam General Appearance: WD/WN, no apparent distress Eyes: normal inspection, sclerae normal ENT: hearing grossly normal Neck: trachea midline Respiratory/Chest: lungs clear, normal breath sounds, no respiratory distress, no accessory muscle use Cardiovascular: regular rate, rhythm, no edema, no murmur Abdomen: normal bowel sounds, non tender, soft Extremities: normal inspection, no pedal edema, no calf tenderness, no hematoma at right wrist cath site Neurologic/Psychiatric: alert, normal mood/affect, oriented x 3 Skin: normal color, warm/dry, no rash Review of Systems: Constitutional: No problem reported Eyes: No problem reported ENT: No problem reported Respiratory: No problem reported Cardiovascular: No problem reported Abdomen: No problem reported Musculoskeletal: No problem reported Genitourinary - Male: No problem reported Neurologic: No problem reported Psychiatric: No problem reported Endocrine: No problem reported Hematologic / Lymphatic: No problem reported Integumentary: No problem reported Hospital Course This patient is a 67-year-old male with history of CAD with 3 stents placed in 2012, HTN, BPH, and statin intolerance, who presents to the ER with 2 hours of progressively worsening left-sided chest pain. The chest pain is described as a tightness and squeezing, is nonradiating, was associated with anxiety, nausea. It was a 5 out of 10 at worst. It was relieved with nitroglycerin sublingually in the ER, however continued to slightly wax and wane to a 0.5 out of 10 in severity with Nitropaste in place. His blood pressure did drop into the 80s systolic with nitroglycerin but responded to a bolus of normal saline. First troponin was elevated at 0.29. His ECG showed ST depressions in the anterior leads which resolved with nitroglycerin on subsequent ECGs. Chest pain/unstable angina/NSTEMI/CAD with history of 3 TESHA-with first troponin elevated 0.29 and then increase to 2.7-went for urgent cardiac catheterization and had to TESHA placed-culprit vessel was second OM, also with stent placed in the diagonal Troponin peaked 66 and then trended back down to 42 Echocardiogram with normal EF LDL 104, total cholesterol 170, HDL 39 -no malignant ventricular arrhythmias noted -Cardiology consultation and management appreciated -Continue aspirin, carvedilol (increase to twice daily from what is noted on home med rec) -started Brilinta 90 mg p.o. twice daily -Patient is willing to start a low-dose statin at this time given history of previous intolerance to statins-started Crestor 5 mg nightly -will need cardiac rehab after discharge -Will need outpatient cardiology follow-up after discharge HTN-blood pressure is acceptable -Continue amlodipine -Continue carvedilol Hypokalemia-resolved with replacement BPH-stable -Continue Flomax Stable for discharge to home Total Time Spent: Greater than 30 minutes This includes examination of the patient, discharge planning, medication reconciliation, and communication with other providers. Discharge Instructions Please refer to the electronic Patient Visit Report (Discharge Instructions) for additional information. Follow-Up with PCP within 1 week With Cardiology within 1-2 weeks Additional Copies To Christiano Chowdhury M.D.
[2017-11-28 10:58] VITALS: BP 114/74; PULSE 60; TEMP 36.7; O2SAT 98
--- NOTE | 2017-11-29 15:11 | ECHOCARDIOGRAM REPORT ---
*NOTICE TO RECEIVING DEMOCRAT AGENCY This information is strictly Confidential and protected under [place] law. [place] law prohibits you from making any further disclosure of this information unless further disclosure is expressly permitted by the written consent of the person to whom it pertains or is authorized by law. A general authorization for the release of medical or other information is not sufficient for this purpose. Hospital accepts no responsibility if the information is made available to any other person, INCLUDING THE PATIENT. Interpretation Summary * Name: JASON PAK Study Date: 11/26/2017 11:01 AM BP: 140/89 mmHg * Patient Location: [facility]\S\[id number]\S\1 HR: 71 * : 1950 (M/d/yyyy) Gender: Male Height: 68 in * Age: 67 yrs Ethnicity: [place] Weight: 205 lb * Ordering Physician: Rosemary Cedillo * Referring Physician: Self, Referred * Performed By: Carlyle Morrison RDCS * * Reason For Study: Chest pain * BSA: 2.1 m2 * -- Conclusions -- * Left ventricular systolic function is normal. * Akinetic to severely hypokinetic segment involving the proximal inferior wall and the mid and proximal posterior wall. * Ejection Fraction = 55-60%. * There is borderline concentric left ventricular hypertrophy. * Grade I diastolic dysfunction, (abnormal relaxation pattern). * There is mild mitral regurgitation. Procedure Details * A complete two-dimensional transthoracic echocardiogram was performed (2D, M-mode, Doppler and color flow Doppler). * The study was technically adequate. Left Ventricle * The left ventricle is normal in size. * There is borderline concentric left ventricular hypertrophy. * Left ventricular systolic function is normal. * Ejection Fraction = 55-60%. * Akinetic to severely hypokinetic segment involving the proximal inferior wall and the mid and proximal posterior wall. Right Ventricle * The right ventricle is grossly normal size. * The right ventricular systolic function is normal as assessed by tricuspid annular plane systolic excursion (TAPSE) (normal >1.5 cm). Atria * The left atrium is borderline dilated. * Right atrial size is normal. * No ASD detected; PFO is not assessed. Mitral Valve * The mitral valve anatomy is normal. * There is no mitral valve stenosis. * There is mild mitral regurgitation. Tricuspid Valve * The tricuspid valve anatomy is normal. * Significant tricuspid regurgitation is absent. Aortic Valve * The aortic valve is normal in structure and function. * No hemodynamically significant valvular aortic stenosis. * There is no significant aortic regurgitation. Pulmonic Valve * The pulmonary valve is not well seen, but the Doppler examination is normal without significant regurgitation or stenosis. Great Vessels * The aortic root is normal size. * The pulmonary is not well visualized. Pericardium/Pleural * There is no pericardial effusion. Great Vessels * Normal inferior vena cava size and collapsability with sniff indicates a normal right atrial pressure of 3 mmHg Left Ventricular Diastolic Function * Grade I diastolic dysfunction, (abnormal relaxation pattern). MMode 2D Measurements and Calculations IVSd 1.3 cm IVSs 1.7 cm LVIDd 5.4 cm LVIDs 3.9 cm LVPWd 1.2 cm LVPWs 1.7 cm IVS/LVPW 1.1 FS 28.4 % EDV(Teich) 142.3 ml ESV(Teich) 65.1 ml EF(Teich) 54.2 % EDV(cubed) 158.9 ml ESV(cubed) 58.4 ml EF(cubed) 63.2 % % IVS thick 25.7 % % LVPW thick 40.7 % LV mass(C)d 286.1 grams LV mass(C)dI 138.5 grams/m\S\2 LV mass(C)s 268.3 grams LV mass(C)sI 129.9 grams/m\S\2 SV(Teich) 77.2 ml SI(Teich) 37.4 ml/m\S\2 SV(cubed) 100.5 ml SI(cubed) 48.6 ml/m\S\2 EPSS 0.35 cm Ao root diam 3.5 cm Ao root area 9.7 cm\S\2 LA dimension 4.5 cm asc Aorta Diam 3.8 cm LA/Ao 1.3 LVOT diam 2.0 cm LVOT area 3.2 cm\S\2 LVAd ap4 31.3 cm\S\2 LVLd ap4 8.6 cm EDV(MOD-sp4) 93.5 ml EDV(sp4-el) 96.5 ml LVAs ap4 17.7 cm\S\2 LVLs ap4 7.0 cm ESV(MOD-sp4) 38.5 ml ESV(sp4-el) 37.7 ml EF(MOD-sp4) 58.8 % EF(sp4-el) 60.9 % LVAd ap2 32.6 cm\S\2 LVLd ap2 8.6 cm EDV(MOD-sp2) 107.0 ml EDV(sp2-el) 105.0 ml LVAs ap2 18.1 cm\S\2 LVLs ap2 7.1 cm ESV(MOD-sp2) 39.1 ml ESV(sp2-el) 38.9 ml EF(MOD-sp2) 63.4 % EF(sp2-el) 62.9 % LVLd %diff -0.42 % EDV(MOD-bp) 99.9 ml LVLs %diff 0.81 % ESV(MOD-bp) 39.0 ml EF(MOD-bp) 60.9 % SV(MOD-sp4) 55.0 ml SI(MOD-sp4) 26.6 ml/m\S\2 SV(MOD-sp2) 67.8 ml SI(MOD-sp2) 32.8 ml/m\S\2 SV(MOD-bp) 60.9 ml SI(MOD-bp) 29.5 ml/m\S\2 SV(sp4-el) 58.8 ml SI(sp4-el) 28.5 ml/m\S\2 SV(sp2-el) 66.1 ml SI(sp2-el) 32.0 ml/m\S\2 Doppler Measurements and Calculations MV E max darlene 66.3 cm/sec MV A max darlene 77.1 cm/sec MV E/A 0.86 MV dec time 0.20 sec Ao V2 max 113.2 cm/sec Ao max PG 5.1 mmHg Ao max PG (full) 0.66 mmHg DARNELL(V,A) 3.0 cm\S\2 DARNELL(V,D) 3.0 cm\S\2 LV V1 max PG 4.5 mmHg LV V1 max 105.7 cm/sec PA V2 max 88.9 cm/sec PA max PG 3.2 mmHg PA acc slope 465.9 cm/sec\S\2 PA acc time 0.16 sec PI end-d darlene 82.0 cm/sec PA pr(Accel) 8.2 mmHg
== END 2017-11-28 11:22 | disposition home or self-care (01) | DRG 247 ==
LOC: C.EDB 06:42 → C.MED 08:56 → ENRESERV 09:12 → C.2T 14:50 → OBSVTOIN 11-27 16:37
PROVIDERS: ADMIT Family Medicine; ATTEND Family Medicine
PROC: 027135Z Dilation of Coronary Artery, Two Arteries with Two Drug-eluting Intraluminal Devices, Percutaneous Approach (ICD-10-PCS; principal; 2017-11-26 12:34)
PROC: 4A023N7 Measurement of Cardiac Sampling and Pressure, Left Heart, Percutaneous Approach (ICD-10-PCS; principal; 2017-11-26 12:34)
PROC: B211YZZ Fluoroscopy of Multiple Coronary Arteries using Other Contrast (ICD-10-PCS; principal; 2017-11-26 12:34)
DX: I21.4 Non-ST elevation (NSTEMI) myocardial infarction (principal); I25.10 Atherosclerotic heart disease of native coronary artery without angina pectoris; E87.6 Hypokalemia; E78.00 Pure hypercholesterolemia, unspecified; I10 Essential (primary) hypertension; R11.0 Nausea; N40.0 Benign prostatic hyperplasia without lower urinary tract symptoms; I25.2 Old myocardial infarction; Z79.82 Long term (current) use of aspirin; Z79.899 Other long term (current) drug therapy; Z95.5 Presence of coronary angioplasty implant and graft; Z82.41 Family history of sudden cardiac death; Z88.8 Allergy status to other drugs, medicaments and biological substances; Z91.041 Radiographic dye allergy status